=== PATIENT | female | born 1995 | race Caucasian/White ===

== ENCOUNTER 2017-10-03 09:07 | Emergency (ER) | payer SELFPAY ==
[2017-10-03 09:13] VITALS: BMI 26.6
[2017-10-03] MEDS ORDERED: NS 1000 ML 1,000 ML IV ONE (10:00)
--- NOTE | 2017-10-03 10:00 | DR.GENAD ---
HPI - PCP Primary Care Physician: NFD - Complaint/Symptoms Chief Complaint Doctors Comments: Patient states she hurts under both ribs for the past five hours with cold, cough, dizziness and problems with her balasnce worst when standing. States she passed out several times last night. Sates she has cold, cough with scant mucous production. States her LMP 1 Oct 11 and she is not using any contraceptives. She denies dysuria, hematuria but had nausea, vomiting and diarrhea last night. States she got hot while going to the bathroom and fell. states she ate some food that was in 2016. States smokes 1/2 pack daily but denies alcohol usage. Chief Complaint:: PT. C/O SYNCOPE, RIB PAIN, COUGH, CHILLS, N/V/D THAT BEGAN AT 0430. PT. HAS PASSED OUT TWICE SINCE ONSET PER FAMILY. - Nurses notes reviewed Nurses Notes Review: Yes - Source History Provided: Patient - Mode of Arrival Mode of Arrival: Wheelchair - Timing Onset of Chief Complaint: 10/03/17 Came on: Gradually - Duration Duration: Constant How lon Duration: Hours - Location Location: pain under ribs - Severity Severity: Moderate - Modifying Factors Worsens:: movement and cough Improves:: nothing PMH - PMH Past Medical History: No Past Surgical History: No Surgical History: No History - Family History History of Family Medical Conditions: Yes Family Medical History: Coronary Artery Disease - Social History Does patient currently use any type of tobacco product: Yes Have you used tobacco products in the last 12 months: Yes Type of Tobacco Use: Cigarettes Does any household member use tobacco: No Alcohol Use: None Do you use any recreational Drugs:: No Lives With: Family Lives Where: Home - infectious screening In the last 2 months have you had wt loss of >10#?: NO Have you had fever, night sweats or hemotysis?: No Have you traveled outside the country in the last 6 months?: No Isolation: Standard ROS - Review of Systems Constitutional: No Symptoms Reported, Loss of Appetite. negative: See HPI, Chills, Diaphoresis, Fever, Malaise, Weakness, Irritable, Fatigue, Other Eyes: No Symptoms Reported. negative: See HPI, Eye Pain, Blurred Vision, Tearing, Discharge, Photophobia, Diplopia, Other ENTM: No Symptoms Reported. negative: See HPI, Ear Pain, Ear Discharge, Pulling on Ears, Hearing Loss, Nose Pain, Nose Discharge, Epistaxis, Nose Congestion, Mouth Pain, Mouth Swelling, Loose Teeth, Drooling, Throat Pain, Throat Swelling, Ear Foreign Body Respiratoy: No Symptoms Reported, Non-Productive Cough. negative: See HPI, Productive Cough, Moist Cough, Dry Cough, Hacking Cough, Barking Cough, Brassy Cough, Orthopnea, Short of Breath, Stridor, Wheezing, Hemoptysis, Other Cardiovascular: No Symptoms Reported, Syncope. negative: See HPI, Chest Pain, Edema, Palpitations, Cyanosis, Skin Mottling, Other Gastrointestinal/Abdominal: No Symptoms Reported, Abdominal Pain, Diarrhea, Nausea, Vomiting. negative: See HPI, Constipation, Food Intolerance, Other Genitourinary: No Symptoms Reported. negative: See HPI, Discharge, Dysuria, Frequency, Hematuria, Pain, Bleeding, Other Neurological: No Symptoms Reported, Headache, Weakness, Dizziness. negative: See HPI, Anxiety, Depressed, Emotional Problems, Numbness, Paresthesia, Pre- existing Deficit, Seizure, Tingling, Tremors, Problems Walking, Speech Problem, Other Musculoskeletal: No Symptoms Reported Integumentary: No Symptoms Reported Hematologic/Lymphatic: No Symptoms Reported Endocrine: No Symptoms Reported Psychiatric: No Symptoms Reported PE - Vital Signs Vitals: Temperature 98.1 F Pulse Rate [Left Brachial] 110 Pulse Rate [Standing] 123 Pulse Rate [Sitting] 120 Pulse Rate [Lying] 110 Pulse Rate 120 Respiratory Rate 20 Blood Pressure [Right Arm] 125/74 Blood Pressure [Left Arm] 120/63 Blood Pressure [Standing] 142/73 Blood Pressure [Sitting] 128/68 Blood Pressure [Lying] 120/63 Blood Pressure 141/62 O2 Sat by Pulse Oximetry 100 - General Limitations: No Limitations. negative: Language Barrier, Altered Mental Status , Physical Limitation, Other General Appearance: Alert, In Distress (moderate) - Head Head Exam: Normal Inspection, Atraumatic, Normocephalic - Eyes Eye exam: Normal Appearance, PERRL, EOMI. negative: Scleral Icterus, Conjunctival Injection, Nystagmus, Miosis, Mydrasis, Periorbital Swelling, Periorbital Tenderness, Other - ENT ENT Exam: Normal Exam, Normal Oropharynx, Normal External Ear Exam, Mucous Membranes Moist, TM's Normal Bilaterally External Ear Exam: Normal External Inspection TM/Canal Exam: Bilateral Normal Nose Exam: Normal Nose Exam Mouth Exam: Normal Inspection. negative: Drooling, Trismus, Lip Swelling, Tongue Elevation, Tongue Swelling, Laceration, Other Throat Exam: Normal Inspection. negative: Tonsillar Erythema, Tonsillomegaly, Tonsillar Exudate, R Peritonsillar Mass, L Peritonsillar Mass, Muffled Voice, Other - Neck Neck Exam: Normal Inspection, Full ROM, Trachea Midline. negative: Tenderness, Meningismus, Lymphadenopathy, Thyromegaly, Other - Chest Chest Inspection: Normal Inspection, Symmetric Chest Wall Rise. negative: Tenderness, Rash, Abscess, Other - Respiratory Respiratory Exam: Normal Lung Sounds Bilat Respiratory Exam: Bilateral Clear to Auscultation - Cardiovascular Cardiovascular Exam: Regular Rate, Normal Rhythm, Normal Heart Sounds. negative : Bradycardia, Tachycardia, Irregular Rhythm, Systolic Murmur, Diastolic Murmur , Rubs, Gallop, Clicks, JVD, +S1, +S2, +S3, +S4, Other - Abdominal Exam Abdominal Exam: Normal Inspection, Normal Bowel Sounds, Soft, Tenderness ( epigastric tenderness) Abdominal Tenderness: LUQ, Epigastrium, Suprapubic, Moderate - Extremities Extremities Exam: Normal Inspection, Full ROM, Tenderness, Normal Capillary Refill - Back Back Exam: Normal Inspection, Full ROM - Neurologic Neurological Exam: Alert, Oriented X3, CN II-XII Intact, Reflexes Normal. negative: Normal Gait (gait not tested) - Psychiatric Psychiatric Exam: Normal Affect, Normal Mood - Skin Skin Exam: Warm, Dry, Intact, Normal Color ROR - Labs Reviewed Laboratory Results Reviewed?: Yes (all labs and x-ray results reviewed and discussed with patient) Result Diagrams: 10/03/17 10:10 10/03/17 10:23 Laboratory: WBC 17.5 X10^3/uL (3.6-10.0) H 10/03/17 10:10 RBC 4.10 X10^6/uL (3.5-5.4) 10/03/17 10:10 Hgb 10.6 g/dL (12.0-16.0) L 10/03/17 10:10 Hct 32.4 % (36.0-47.0) L 10/03/17 10:10 MCV 78.8 fL (80.0-100.0) L 10/03/17 10:10 MCH 25.9 pg (27.0-34.0) L 10/03/17 10:10 MCHC 32.9 g/dL (33.0-35.0) L 10/03/17 10:10 RDW 15.5 % (11.6-16.5) 10/03/17 10:10 Plt Count 281 X10^3/uL (150.0-450.0) 10/03/17 10:10 Plt Count Comment Adequate (ADEQUATE) 10/03/17 10:10 MPV 9.6 fL (7.4-11.0) 10/03/17 10:10 Neut % 83.1 % (42.0-75.0) H 10/03/17 10:10 Lymph % 10.1 % (21.0-51.0) L 10/03/17 10:10 [place] % 5.7 % (0.0-13.0) 10/03/17 10:10 Eos % 0.8 % (0.9-2.9) L 10/03/17 10:10 Baso % 0.3 % (0.2-1.0) 10/03/17 10:10 Neut # 14.5 x10^3/uL (2.2-4.8) H 10/03/17 10:10 Lymph # 1.8 X10^3/uL (1.3-2.9) 10/03/17 10:10 [place] # 1.0 x10^3/uL (0.3-0.8) H 10/03/17 10:10 Eos # 0.1 x10^3/uL (0.0-0.2) 10/03/17 10:10 Baso # 0.1 X10^3/uL (0.0-0.1) 10/03/17 10:10 Absolute Nucleated RBC 0.0 /100WBC 10/03/17 10:10 Plt Morphology Comment Normal (NORMAL) 10/03/17 10:10 RBC Morphology Normal (NORMAL) 10/03/17 10:10 D-Dimer 850 ng/mL (0-400) H* 10/03/17 10:10 Sodium 139 mmol/L (136-145) 10/03/17 10:23 Corrected Sodium TNP 10/03/17 10:23 Potassium 4.5 mmol/L (3.5-5.1) 10/03/17 10:23 Chloride 105 mmol/L (98-107) 10/03/17 10:23 Carbon Dioxide 25.6 mmol/L (21-32) 10/03/17 10:23 BUN 9 mg/dL (7-18) 10/03/17 10:23 Creatinine 0.56 mg/dL (0.55-1.02) 10/03/17 10:23 Est GFR (MDRD) Af Amer > 60 (>60) 10/03/17 10:23 Est GFR (MDRD) Non-Af > 60 (>60) 10/03/17 10:23 Glucose 110 mg/dL (65-99) H 10/03/17 10:23 Calcium 9.2 mg/dL (8.5-10.1) 10/03/17 10:23 Corrected Calcium TNP 10/03/17 10:23 Total Bilirubin 0.50 mg/dL (0.2-1.0) 10/03/17 10:23 AST 10 Units/L (15-37) L 10/03/17 10:23 ALT 18 Units/L (12-78) 10/03/17 10:23 Alkaline Phosphatase 105 Units/L (45-150) 10/03/17 10:23 Total Protein 7.2 g/dL (6.4-8.2) 10/03/17 10:23 Albumin 3.7 g/dL (3.4-5.0) 10/03/17 10:23 Globulin 3.5 g/dL (2.5-4.5) 10/03/17 10:23 Albumin/Globulin Ratio 1.1 Ratio (1.1-2.1) 10/03/17 10:23 Amylase 34 Units/L (25-115) 10/03/17 10:23 Lipase 60 Units/L (73-393) L 10/03/17 10:23 HCG, Qual Negative <10 mIU/mL 10/03/17 10:22 Specimen Type Clean catch urine 10/03/17 10:01 Urine Color Yellow (YELLOW) 10/03/17 10:01 Urine Appearance Hazy (CLEAR) 10/03/17 10:01 Urine pH 6.0 (5.0 - 8.0) 10/03/17 10:01 Ur Specific Pitcher 1.015 (1.000-1.030) 10/03/17 10:01 Urine Protein Negative (NEGATIVE) 10/03/17 10:01 Urine Glucose (UA) Negative (NEGATIVE) 10/03/17 10:01 Urine Ketones 3+ (NEGATIVE) 10/03/17 10:01 Urine Occult Blood 2+ (NEGATIVE) 10/03/17 10:01 Urine Nitrite Negative (NEGATIVE) 10/03/17 10:01 Urine Bilirubin Negative (NEGATIVE) 10/03/17 10:01 Urine Urobilinogen 1+ (NORMAL) 10/03/17 10:01 Ur Leukocyte Esterase 1+ (NEGATIVE) 10/03/17 10:01 Urine RBC 1 - 3 /HPF (NEGATIVE) 10/03/17 10:01 Urine WBC 1 - 2 /HPF (NEGATIVE) 10/03/17 10:01 Ur Squamous Epith Cells Many /HPF (NEGATIVE) 10/03/17 10:01 Urine Bacteria Trace /HPF (NEGATIVE) 10/03/17 10:01 Ur Culture Indicated? No/not indicated 10/03/17 10:01 Urine Opiates Screen Negative (NEG=<300) 10/03/17 10:17 Urine Methadone Screen Negative (NEG=<300) 10/03/17 10:17 Ur Barbiturates Screen Negative (NEG=<200) 10/03/17 10:17 Ur Phencyclidine Scrn Negative (NEG=<25) 10/03/17 10:17 Ur Amphetamines Screen Negative (NEG=<1000) 10/03/17 10:17 U Benzodiazepines Scrn Negative (NEG=<200) 10/03/17 10:17 Urine Cocaine Screen Negative (NEG=<300) 10/03/17 10:17 U Marijuana (THC) Screen Positive (NEG=<50) A 10/03/17 10:17 H. pylori IgG Antibody Negative (NEGATIVE) 10/03/17 10:10 - XRAY XRAY Interpreted by: Radiologist (CYA: No CT evidence of pulmonary embolus. Free fluid in abdomen) - Diagnosis Discharge Problem: Gastroenteritis, Marijuana use, Bronchitis Urinary tract infection Qualifiers: Encounter type: initial encounter Syncope Qualifiers: Syncope type: unspecified Qualified Code(s): R55 - Syncope and collapse - Discharge Plan Disposition: 01 HOME, SELF-CARE Condition: Stable Prescriptions: Ciprofloxacin HCl [CIPRO 500 MG TAB *] 500 mg PO Q12H #20 tab - Follow ups/Referrals Follow ups/Referrals: NFD,None [Primary Care Provider] - 3 days Augie Sherwood [STAFF PHYSICIAN] - 3 days - Instructions Instructions: Cannabis Use Disorder, Urinary Tract Infection, Adult, Syncope, [id number], Acute Bronchitis
[2017-10-03] MEDS ORDERED: NS 1000 ML 1,000 ML ONE (10:05)
[2017-10-03 10:11] LABS: BILIRUBIN,URINE NEGATIVE (NEGATIVE); BLOOD/HEMOGLOBIN,URINE 2+ (NEGATIVE); GLUCOSE, URINE NEGATIVE (NEGATIVE); KETONES,URINE 3+ (NEGATIVE); LEUKOCYTE ESTERASE ,URINE 1+ (NEGATIVE); NITRITES,URINE NEGATIVE (NEGATIVE); PROTEIN,URINE NEGATIVE (NEGATIVE); UROBILINOGEN,URINE 1+ (NORMAL)
[2017-10-03 10:19] VITALS: BP 120/63
[2017-10-03 10:19] LABS: APPEARANCE,URINE HAZY (CLEAR); COLOR,URINE YELLOW (YELLOW)
[2017-10-03 10:20] LABS: BACTERIA,URINE TRACE /HPF (NEGATIVE); SQUAMOUS EPITHELIAL CELL,UR MANY /HPF (NEGATIVE)
[2017-10-03 10:54] LABS: SERUM PREGNANCY TEST, QUAL NEGATIVE <10 mIU/mL
[2017-10-03 12:28] LABS: ALANINE AMINOTRANSFERASE 18 Units/L (12-78); ALBUMIN 3.7 g/dL (3.4-5.0); ALKALINE PHOSPHATASE 105 Units/L (45-150); AMYLASE 34 Units/L (25-115); ASPARTATE AMINO TRANSFERASE 10 Units/L (15-37); BLOOD UREA NITROGEN 9 mg/dL (7-18); CALCIUM 9.2 mg/dL (8.5-10.1); CARBON DIOXIDE 25.6 mmol/L (21-32); CHLORIDE 105 mmol/L (98-107); CREATININE 0.56 mg/dL (0.55-1.02); LIPASE 60 Units/L (73-393); SODIUM 139 mmol/L (136-145); TOTAL PROTEIN 7.2 g/dL (6.4-8.2); eGFR BLACK RACES > 60 (>60); eGFR NON BLACK RACES > 60 (>60)
[2017-10-03 12:42] LABS: BASOPHILS # (AUTO) 0.1 X10^3/uL (0.0-0.1); BASOPHILS % (AUTO) 0.3 % (0.2-1.0); EOSINOPHILS # (AUTO) 0.1 x10^3/uL (0.0-0.2); EOSINOPHILS % (AUTO) 0.8 % (0.9-2.9); HEMATOCRIT 32.4 % (36.0-47.0); HEMOGLOBIN 10.6 g/dL (12.0-16.0); LYMPHOCYTES # (AUTO) 1.8 X10^3/uL (1.3-2.9); LYMPHOCYTES % (AUTO) 10.1 % (21.0-51.0); MEAN CORPUSCULAR HEMOGLOBIN 25.9 pg (27.0-34.0); MEAN CORPUSCULAR HGB CONC 32.9 g/dL (33.0-35.0); MEAN CORPUSCULAR VOLUME 78.8 fL (80.0-100.0); MEAN PLATELET VOLUME 9.6 fL (7.4-11.0); MONOCYTES % (AUTO) 5.7 % (0.0-13.0); NEUTROPHILS # (AUTO) 14.5 x10^3/uL (2.2-4.8); NEUTROPHILS % (AUTO) 83.1 % (42.0-75.0); PLATELET COUNT 281 X10^3/uL (150.0-450.0); RED CELL DISTRIBUTION WIDTH 15.5 % (11.6-16.5); WHITE BLOOD COUNT 17.5 X10^3/uL (3.6-10.0)
[2017-10-03 13:17] LABS: PLATELET MORPHOLOGY COMMENT NORMAL (NORMAL)
--- NOTE | 2017-10-03 13:18 | RAD ---
Examination: Abdomen with PA chest History: Abdominal pain Findings: PA chest demonstrates normal heart size with clear lungs and pleural spaces. In the abdomen, supine and upright views demonstrate no evidence for obstruction or perforation, path ologic calcification or ascites. There is slight localized dilatation of the right colon. Impression: No acute chest or abdominal process demonstrated. See above. Reported By:
--- NOTE | 2017-10-03 13:36 | CT ---
HISTORY: Syncope, cough, elevated D-dimer Study: CTA of the chest Comparison: None Technique: Serial axial images were obtained from the thoracic inlet to the upper abdomen with infusi on of IV contrast. Coronal and sagittal three-dimensional reformatted MIP images were also submitted utilizing CTA protocol. Findings: Scattered subcentimeter lymph nodes are seen within the mediastinum. Timing of the contrast bolus and associated streak artifact limit evaluation. As visualized no definite large well-circumscribed cent ral filling defects are appreciated within the main pulmonary artery is. If symptoms or clinical conc vahid persist repeat exam may be helpful as clinically indicated. Otherwise no CT evidence of focal con solidation, pneumothorax, or pleural effusion is identified. A small to moderate amount of ascites is seen adjacent to the visualized liver. A small amount of ascites is seen adjacent to the spleen as w ell. Free fluid is demonstrated within the left upper quadrant near the body and tail of the pancreas . Correlate clinically for pancreatitis. Mild wall thickening of adjacent loops of bowel are noted wi thin the left upper quadrant and may be reactive to the above-mentioned free fluid. Free fluid is als o seen adjacent to the gallbladder. IMPRESSION: No definite CT evidence of pulmonary embolus is appreciated as discussed above. Free fluid within the visualized abdomen as discussed above. Recommend clinical correlation. Reported By:
[2017-10-03] MEDS ORDERED: ROCEPHIN 1 GM IV PREMIX 1 GM/50 ML IV.SOLN. IV ONE (13:54)
[2017-10-03] MEDS ORDERED: LEVAQUIN TAB 500 MG PO STA (13:55)
[2017-10-03] MEDS ORDERED: ROCEPHIN VIAL 1 GM ONE (14:11)
[2017-10-03] MEDS ORDERED: LEVAQUIN TAB 500 MG ONE (14:11)
[2017-10-03] MEDS ORDERED: NS 50 ML IV 50 ML IV ONE (14:11)
== END 2017-10-03 14:35 | disposition home or self-care (01) ==
LOC: ER 09:13
DX: F12.90 Cannabis use, unspecified, uncomplicated (principal); J40 Bronchitis, not specified as acute or chronic; K52.89 Other specified noninfective gastroenteritis and colitis; N39.0 Urinary tract infection, site not specified; R55 Syncope and collapse
CPT/HCPCS: 36415; 71275; 74022; 80053; 80307; 81001; 82150; 83690; 84703; 85025; 85378; 86677; 96365; 96374; 99282; 99283; A4222; G0434; J0696

== ENCOUNTER 2018-06-10 06:30 | Inpatient (IN) ==
[~2018-06-10 06:30] MED LIST: ADRENALINE CHL INJ ONE; D5 1/2 NS 1000 ML 1,000 ML IV ONE; D5 1/2 NS 1000 ML 1,000 ML IV SCH; D5 1/2 NS 1L W PITOCIN 20 UNITS/L 20 UNITS/1,000 ML BAG IV ONE; D5LR 1L W PITOCIN 10 UNITS/L 10 UNITS/1,000 ML BAG IV ONE; D5LR 1L W PITOCIN 10 UNITS/L 10 UNITS/1,000 ML BAG IV PRN; FENTANYL INJ 100 mcg ONE; LR 1000 ML IV 1,000 ML IV ONE; MORPHINE SULFATE INJ 2 MG INJ IVP PRN; NAROPIN EPIDURAL 0.2% + FENTANYL 90MCG 60 ML EPI ONE; NUBAIN INJ 200 MG VIAL MULTIDOSE IVP PRN; PHENERGAN INJ 25 MG IV PRN; PITOCIN IVP ONE; PITOCIN ONE; REGLAN INJ 10 MG VIAL IVP PRN; XYLOCAINE 1 % (PLAIN) ONE
--- NOTE | 2018-06-10 07:23 | DR.OB ---
OB Quick Note - Assessment/Plan Assessment/Plan: L&D 06/10/18 at 7:05am S-No complaint. O-Afebrile,VSS IQK=089 with good LTV, +accel, no decel. CTX=none CVX=2cm/50%/-1/VTX AROM with clear fluid. IUPC and FSE placed. A-IUP at 38 5/7 weeks for induction PIH P-Begin pitocin induction F/U preeclamptic labs Anticipate
[2018-06-10 07:39] LABS: URIC ACID 5.4 mg/dL (2.6-6.0)
--- NOTE | 2018-06-10 11:55 | DR.OB ---
OB Quick Note - Assessment/Plan Assessment/Plan: L&D 06/10/18 at 11:50am Pitocin=18mu/min. S-No complaint. s/p epidural. O-Afebrile,VSS TQQ=078 with good LTV, +accel, no decel. CTX=q 1 1/2 to 2 min., about 35-55mmHg CVX=3cm/75%/-1 A-IUP at 38 5/7 weeks for induction PIH P-Cont. pitocin induction Anticipate
[2018-06-10] MEDS ORDERED: MARCAINE 0.25% INJ ONE (13:28)
[2018-06-10] MEDS ORDERED: NAROPIN EPIDURAL 0.2% + FENTANYL 90MCG 60 ML EPI ONE (14:52)
[2018-06-10] MEDS ORDERED: PHENERGAN INJ 25 MG IV PRN (16:38)
--- NOTE | 2018-06-10 16:38 | DR.OB ---
OB Quick Note - Assessment/Plan Assessment/Plan: Delivery Note TATTOO ARTIST 06/10/18 at 4:30pm Patient complete and pushing. Head delivered over intact perineum. Nuchal cord x 1 reduced. Nose and mouth bulb suctioned. Body delivered over intact perineum. Cord clamped x 2 and cut. Infant handed to attendant. Cord sent for gases. Placenta delivered spontaneously / intact / 3 vessel cord. No CVX / vaginal / perineal tears. Viable female infant, VTX/OA, wt=6'12" and 9/ 9, stable to NBN. Mother stable to RR. [id number].
[2018-06-10] MEDS: MOTRIN TAB 800 MG PO PRN (16:40)
[2018-06-10] MEDS ORDERED: MILK OF MAGNESIA PO PRN (17:45)
[2018-06-10] MEDS ORDERED: AMBIEN PO PRN (17:45)
[2018-06-10] MEDS ORDERED: DERMOPLAST SPRAY TOP PRN (17:45)
[2018-06-10] MEDS ORDERED: ADACEL or BOOSTRIX TDaP VACCINE IM ONE (17:45)
[2018-06-10] MEDS ORDERED: PERCOCET TAB 5/325 MG PO PRN (18:39)
[2018-06-10] MEDS: ZANTAC PO SCH (21:00)
[2018-06-11] MEDS ORDERED: PITOCIN ONE (02:29)
[2018-06-11] MEDS ORDERED: NS 1000 ML 1,000 ML ONE (02:45)
[2018-06-11] MEDS: D5 1/2 NS 1000 ML 1,000 ML with PITOCIN 20 UNITS IV SCH ×4 (03:00→18:20)
[2018-06-11 05:24] LABS: HEMATOCRIT 23.7 % (36.0-47.0); HEMOGLOBIN 8.2 g/dL (12.0-16.0)
[2018-06-11] MEDS: FERROUS GLUCONATE PO SCH ×2 (06:09→16:34)
[2018-06-11] MEDS: ZANTAC PO SCH (09:35)
[2018-06-11] MEDS: PRENATAL PLUS PO SCH (09:35)
[2018-06-11] MEDS: MOTRIN TAB 800 MG PO PRN (23:00)
[2018-06-12] MEDS: ZANTAC PO SCH ×2 (00:10→09:15)
[2018-06-12] MEDS: D5 1/2 NS 1000 ML 1,000 ML with PITOCIN 20 UNITS IV SCH ×4 (03:21→10:10)
[2018-06-12 08:08] VITALS: BP 116/57
[2018-06-12] MEDS: FERROUS GLUCONATE PO SCH (09:15)
[2018-06-12] MEDS: PRENATAL PLUS PO SCH (09:15)
== END 2018-06-12 11:08 | disposition home or self-care (01) | DRG 775 ==
LOC: LD 06:39 → MED/SURG 17:35
PROVIDERS: ADMIT Specialist; ATTEND Specialist
DX: D50.8 Other iron deficiency anemias; O13.3 Gestational [pregnancy-induced] hypertension without significant proteinuria, third trimester; O28.8 Other abnormal findings on antenatal screening of mother; Z37.0 Single live birth; O99.013 Anemia complicating pregnancy, third trimester; Z23 Encounter for immunization; Z3A.38 38 weeks gestation of pregnancy
CPT/HCPCS: 36415; 59409; 80048; 80307; 81001; 83615; 84450; 84460; 84550; 85014; 85018; 85025; 85384; 85610; 85730; 86592; 86850; 86900; 86901; 90715; A4216; A4222; S0020; S0197; G0434; J0171; J2590; J3010; J7030; J7120; S5010

== ENCOUNTER 2019-09-04 11:07 | Inpatient (IN) ==
[2019-09-04 11:33] VITALS: BMI 32.3
[2019-09-04 12:20] LABS: BLOOD UREA NITROGEN 6 mg/dL (7-18); CALCIUM 7.9 mg/dL (8.5-10.1); CHLORIDE 106 mmol/L (98-107); CREATININE 0.73 mg/dL (0.55-1.02); SODIUM 140 mmol/L (136-145); eGFR NON BLACK RACES > 60 (>60)
[2019-09-04 12:21] LABS: BASOPHILS % (AUTO) 0.2 % (0.2-1.0); HEMOGLOBIN 9.7 g/dL (12.0-16.0); MEAN CORPUSCULAR HGB CONC 33.5 g/dL (33.0-35.0)
[2019-09-04 12:22] LABS: MEAN CORPUSCULAR HEMOGLOBIN 28.6 pg (27.0-34.0); MEAN CORPUSCULAR VOLUME 85.3 fL (80.0-100.0); WHITE BLOOD COUNT 29.5 X10^3/uL (3.6-10.0)
[2019-09-04 12:23] LABS: BASOPHILS # (AUTO) 0.1 X10^3/uL (0.0-0.1); LYMPHOCYTES # (AUTO) 1.4 X10^3/uL (1.3-2.9); LYMPHOCYTES % (AUTO) 4.6 % (21.0-51.0); MEAN PLATELET VOLUME 7.3 fL (7.4-11.0); MONOCYTES # (AUTO) 1.7 x10^3/uL (0.3-0.8); MONOCYTES % (AUTO) 5.7 % (0.0-13.0); NEUTROPHILS # (AUTO) 26.4 x10^3/uL (2.2-4.8); NEUTROPHILS % (AUTO) 89.5 % (42.0-75.0); PLATELET COUNT 159 X10^3/uL (150.0-450.0); RED CELL DISTRIBUTION WIDTH 14.2 % (11.6-16.5)
[2019-09-04 12:27] LABS: BAND NEUTROPHILS % 3 % (0-10); PLATELET MORPHOLOGY COMMENT NORMAL (NORMAL)
[2019-09-04] MEDS ORDERED: NS 100 ML IV 100 ML IV ONE (12:48)
[2019-09-04] MEDS ORDERED: D5 1/2 NS 1000 ML 1,000 ML IV ONE (12:48)
[2019-09-04] MEDS ORDERED: ANCEF VIAL 1 GRAM ONE (12:48)
[2019-09-04] MEDS ORDERED: ANCEF VIAL 1 GRAM IVP ONE (13:00)
--- NOTE | 2019-09-04 13:07 | US ---
HISTORY: No heart tones Study: OB ultrasound greater than 14 weeks Comparison: None Technique: Multiple grayscale and color flow Doppler images of the pelvis were obtained with focused evaluation of the fetus. Findings: No identifiable heart tones or cardiac motion. Value Estimated Gestational Age BPD 5.5 22 weeks 5 days HC 19.2 21 weeks 3 days AC 17.1 22 weeks 1 day FL 3.9 22 weeks 4 days IMPRESSION: No identifiable heart tones which is highly concerning for demise. Reported By:
[2019-09-04] MEDS ORDERED: CYTOTEC ONE (13:18)
[2019-09-04 15:19] LABS: APPEARANCE,URINE TURBID (CLEAR); BACTERIA,URINE 1+ /HPF (NEGATIVE); COLOR,URINE BLOODY (YELLOW); RBC,URINE TNTC /HPF (0-3); SQUAMOUS EPITHELIAL CELL,UR FEW /HPF (NEGATIVE)
[2019-09-04] MEDS ORDERED: ZOFRAN INJ 4 MG VIAL IVP PRN (15:26)
[2019-09-04] MEDS ORDERED: D5 1/2 NS 1000 ML 1,000 ML IV SCH (16:00)
[2019-09-04] MEDS ORDERED: NUBAIN INJ 10 ONE (17:14)
[2019-09-04] MEDS ORDERED: ZOFRAN INJ 4 MG VIAL ONE (17:14)
[2019-09-04] MEDS ORDERED: D5 1/2 NS 1L W PITOCIN 20 UNITS/L 20 UNITS/1,000 ML BAG IV ONE ×2 (17:56→22:11)
[2019-09-04] MEDS ORDERED: PITOCIN ONE (17:56)
[2019-09-04] MEDS ORDERED: PHENERGAN INJ 25 MG IM PRN (18:18)
--- NOTE | 2019-09-04 18:18 | DR.OB ---
OB Quick Note - Assessment/Plan Assessment/Plan: Delivery Note MAPPING PILOT 09/04/19 at 6:10pm Patient noted pressure and all products delivered intact and vaginally. Membranes intact with VTX infant. Placenta delivered with fetus and intact with cord attached. Large amount of clots noted on placenta indicating probable placental abruption. No CVX / vaginal / perineal tears. Membranes entered and moderate meconium noted. A male consistent with dates noted. No obvious malformations noted. Cord 3 vessel and unremarkable.
[2019-09-04] MEDS ORDERED: DERMOPLAST SPRAY TOP PRN (21:19)
[2019-09-04] MEDS ORDERED: MILK OF MAGNESIA PO PRN (21:19)
[2019-09-04] MEDS ORDERED: ADACEL or BOOSTRIX TDaP VACCINE IM ONE (21:19)
[2019-09-04] MEDS ORDERED: AMBIEN PO PRN (21:19)
[2019-09-04] MEDS: MOTRIN TAB 800 MG PO PRN (21:20)
[2019-09-04] MEDS: D5 1/2 NS 1000 ML 1,000 ML with PITOCIN 20 UNITS IV SCH ×4 (21:29→23:54)
[2019-09-05] MEDS: D5 1/2 NS 1000 ML 1,000 ML with PITOCIN 20 UNITS IV SCH ×2 (03:55)
[2019-09-05 05:28] LABS: BASOPHILS % (AUTO) 0.1 % (0.2-1.0); LYMPHOCYTES # (AUTO) 2.6 X10^3/uL (1.3-2.9); LYMPHOCYTES % (AUTO) 12.7 % (21.0-51.0); MEAN CORPUSCULAR HEMOGLOBIN 28.5 pg (27.0-34.0); MEAN CORPUSCULAR HGB CONC 33.7 g/dL (33.0-35.0); MEAN CORPUSCULAR VOLUME 84.5 fL (80.0-100.0); MEAN PLATELET VOLUME 7.9 fL (7.4-11.0); MONOCYTES # (AUTO) 1.5 x10^3/uL (0.3-0.8); MONOCYTES % (AUTO) 7.6 % (0.0-13.0); NEUTROPHILS # (AUTO) 16.1 x10^3/uL (2.2-4.8); NEUTROPHILS % (AUTO) 79.6 % (42.0-75.0); PLATELET COUNT 99 X10^3/uL (150.0-450.0); RED BLOOD COUNT 1.93 X10^6/uL (3.5-5.4); WHITE BLOOD COUNT 20.2 X10^3/uL (3.6-10.0)
[2019-09-05 05:53] LABS: HEMATOCRIT 16.3 % (36.0-47.0); HEMOGLOBIN 5.5 g/dL (12.0-16.0)
[2019-09-05] MEDS: MOTRIN TAB 800 MG PO PRN (07:30)
[2019-09-05] MEDS ORDERED: NS 1000 ML 1,000 ML ONE (07:31)
[2019-09-05] MEDS ORDERED: NS 1000 ML 1,000 ML IV SCH (08:00)
[2019-09-05] MEDS ORDERED: NS 250 ML IV 250 ML IV ONE (08:02)
[2019-09-05] MEDS: PRENATAL PLUS PO SCH (10:19)
[2019-09-05 14:52] LABS: HEMOGLOBIN 7.6 g/dL (12.0-16.0)
[2019-09-05] MEDS: FERROUS GLUCONATE PO SCH (17:06)
[2019-09-05] MEDS ORDERED: COLACE CAP 100 MG PO SCH (21:00)
[2019-09-05] MEDS: NICOTINE PATCH TD SCH (21:09)
[2019-09-06 05:29] LABS: HEMATOCRIT 21.3 % (36.0-47.0); HEMOGLOBIN 7.1 g/dL (12.0-16.0)
[2019-09-06] MEDS: FERROUS GLUCONATE PO SCH (06:02)
[2019-09-06] MEDS ORDERED: DEPO-PROVERA CONTRACEPTIVE INJ IM ONE (07:22)
[2019-09-06] MEDS ORDERED: PEPCID TAB 20 MG PO ONE (08:45)
[2019-09-06] MEDS: NICOTINE PATCH TD SCH (08:49)
[2019-09-06] MEDS: PRENATAL PLUS PO SCH (08:49)
[2019-09-06 10:38] VITALS: BP 132/72
== END 2019-09-06 12:00 | disposition home or self-care (01) | DRG 817 ==
LOC: ER 11:07 → LD 12:54 → OBS 21:20 → MED/SURG 09-05 15:10
PROVIDERS: ADMIT Specialist; ATTEND Specialist
CPT/HCPCS: 36415; 36430; 59409; 76815; 80048; 80307; 81015; 83605; 84702; 85014; 85018; 85025; 86592; 86850; 86900; 86901; 86922; 87040; 87086; 90715; 96365; 96374; 99284; A4216; A4222; P9016; S0191; S0197; G0434; J0690; J1050; J2300; J2405; J2590; J7030; J7050; S5010